=== PATIENT | male | born 1980 | race Caucasian/White ===

== ENCOUNTER 2022-11-29 14:14 | Emergency (ER) | payer OTHER ==
[2022-11-29 14:21] VITALS: BP 117/73; PULSE 64; RESP 18; TEMP 98.1; BMI 25.7
[2022-11-29] MEDS ORDERED: FLUORESCEIN NA 1 EA STRIP ONE (16:05)
[2022-11-29] MEDS ORDERED: TETRACAINE 0.5% OPHTH SOLN 2 ML BOTTLE ONE (16:05)
[2022-11-29] MEDS ORDERED: DIPHTH,PERTUSS(ACELL),TET 0.5 ML DISP.SYRIN IM ONE ×2 (16:22→16:28)
== END 2022-11-29 16:46 | disposition home or self-care (01) ==
LOC: JER 14:14
PROC: 3E0234Z Introduction of Serum, Toxoid and Vaccine into Muscle, Percutaneous Approach (ICD-10-PCS; principal; 2022-11-29)
DX: S05.01XA Injury of conjunctiva and corneal abrasion without foreign body, right eye, initial encounter (principal); X58.XXXA Exposure to other specified factors, initial encounter; Y93.9 Activity, unspecified; Y92.9 Unspecified place or not applicable
CPT/HCPCS: 90715; 99283-25